=== PATIENT | female | born 1965 | race African-American/Black ===

== ENCOUNTER 2021-03-14 08:16 | Outpatient (CLI) | payer OTHER | END 2021-03-14 19:06 | disposition home or self-care (01) | LOC: US 08:16 | PROVIDERS: ATTEND Nurse Practitioner Family | DX: R10.13 Epigastric pain (principal) ==

== ENCOUNTER 2021-05-11 11:08 | Day surgery (SDC) | payer OTHER ==
[2021-05-06 10:22] LABS: PLATELET COUNT 239 K/uL (152-353)
[2021-05-06 10:32] LABS: POTASSIUM 4.1 mmol/L (3.6-5.2)
[~2021-05-11] VITALS: Ht 30.5 cm; Wt 0.5 kg
== END 2021-05-11 14:50 | disposition home or self-care (01) ==
LOC: OR 11:08
PROVIDERS: ATTEND Internal Medicine Gastroenterology
PROC: 0DB68ZZ Excision of Stomach, Via Natural or Artificial Opening Endoscopic (ICD-10-PCS; principal; 2021-05-11)
PROC: 0DB88ZZ Excision of Small Intestine, Via Natural or Artificial Opening Endoscopic (ICD-10-PCS; 2021-05-11)
DX: K21.00 Gastro-esophageal reflux disease with esophagitis, without bleeding (principal); K44.9 Diaphragmatic hernia without obstruction or gangrene; K29.50 Unspecified chronic gastritis without bleeding; R10.11 Right upper quadrant pain; R10.13 Epigastric pain; R11.0 Nausea; Z20.822 Contact with and (suspected) exposure to COVID-19
CPT/HCPCS: 80053; 85027; 87635; J2704; U0003